=== PATIENT | male | born 1965 | race Caucasian/White ===

== ENCOUNTER 2021-09-08 12:19 | Emergency (ER) | payer BC ==
[~2021-09-08] VITALS: Ht 182.9 cm; Wt 115.2 kg
--- NOTE | 2021-09-08 12:23 | ED General ---
General Stated Complaint: CHEST PAIN History of Present Illness Date Seen by Provider: Sep 08, 2021 Time Seen by Provider: 12:22 Initial Comments 56-year-old male with PMH of HTN, is here with complaints of chest pain which began about 8:30 AM today morning. Pt had subjective fever, chills, and tiredness with myalgia yesterday, and stayed home from work. He did not have chest pain yesterday. Pt did the rapid COVID test at home which was negative. Pt went to urgent care today and was sent to ER from there for the chest pain. Patient states that the chest pain was a 9/10 when it was occurring. In the ER patient denies any chest pain. Denies shortness of breath, palpitations, abdominal pain, nausea and vomiting, diarrhea, dysuria, headache, syncope, blurry vision. Patient takes lisinopril for elevated blood pressure at home. No known sick contacts. Allergies and Home Medications Allergies Coded Allergies: No Known Drug Allergies (Unverified , 09/08/21) Patient Home Medication List Home Medication List Reviewed: Yes Review of Systems Review of Systems Constitutional: chills, fever EENTM: no symptoms reported Respiratory: no symptoms reported Cardiovascular: chest pain Gastrointestinal: no symptoms reported Genitourinary: no symptoms reported Musculoskeletal: no symptoms reported Skin: no symptoms reported Psychiatric/Neurological: No Symptoms Reported Hematologic/Lymphatic: No Symptoms Reported Immunological/Allergic: no symptoms reported Physical Exam Vital Signs Vital Signs - First Documented 09/08/21 12:23 Temp 37.0 Pulse 78 Resp 18 B/P (MAP) 145/80 (101) Pulse Ox 96 O2 Delivery Room Air Capillary Refill : Height, Weight, BMI Height: '" Weight: lbs. oz. kg; BMI Method: General Appearance: No Apparent Distress, Anxious HEENT: PERRL/EOMI Neck: Full Range of Motion Respiratory: Chest Non Tender, Lungs Clear, Normal Breath Sounds, No Accessory Muscle Use, No Respiratory Distress Cardiovascular: Regular Rate, Rhythm, No Edema, No JVD, No Murmur, Normal Peripheral Pulses, Other (point tenderness present over the 3rd costochondral junction) Gastrointestinal: Normal Bowel Sounds, Non Tender, Soft Back: Normal Inspection Neurologic/Psychiatric: Alert, Oriented x3, No Motor/Sensory Deficits Progress/Results/Core Measures Suspected Sepsis SIRS Temperature: Pulse: Respiratory Rate: Laboratory Tests 09/08/21 12:25: White Blood Count 7.7 Blood Pressure / Mean: Laboratory Tests 09/08/21 12:25: Creatinine 1.23, Platelet Count 236, Total Bilirubin 0.4 Results/Orders Lab Results Laboratory Tests Test 09/08/21 12:25 09/08/21 12:45 09/08/21 12:57 09/08/21 13:58 Range/Units White Blood Count 7.7 4.3-11.0 10^3/uL Red Blood Count 5.27 4.30-5.52 10^6/uL Hemoglobin 16.1 13.3-17.7 g/dL Hematocrit 46 40-54 % Mean Corpuscular Volume 88 80-99 fL Mean Corpuscular Hemoglobin 31 25-34 pg Mean Corpuscular Hemoglobin Concent 35 32-36 g/dL Red Cell Distribution Width 13.1 10.0-14.5 % Platelet Count 236 130-400 10^3/uL Mean Platelet Volume 9.3 9.0-12.2 fL Immature Granulocyte % (Auto) 0 % Neutrophils (%) (Auto) 69 42-75 % Lymphocytes (%) (Auto) 21 12-44 % Monocytes (%) (Auto) 9 0-12 % Eosinophils (%) (Auto) 1 0-10 % Basophils (%) (Auto) 1 0-10 % Neutrophils # (Auto) 5.3 1.8-7.8 10^3/uL Lymphocytes # (Auto) 1.6 1.0-4.0 10^3/uL Monocytes # (Auto) 0.7 0.0-1.0 10^3/uL Eosinophils # (Auto) 0.1 0.0-0.3 10^3/uL Basophils # (Auto) 0.1 0.0-0.1 10^3/uL Immature Granulocyte # (Auto) 0.0 0.0-0.1 10^3/uL D-Dimer 0.24 0.00-0.49 UG/ML Sodium Level 138 135-145 MMOL/L Potassium Level 3.7 3.6-5.0 MMOL/L Chloride Level 98 98-107 MMOL/L Carbon Dioxide Level 27 21-32 MMOL/L Anion Gap 13 5-14 MMOL/L Blood Urea Nitrogen 21 H 7-18 MG/DL Creatinine 1.23 0.60-1.30 MG/DL Estimat Glomerular Filtration Rate 70 BUN/Creatinine Ratio 17 Glucose Level 98 70-105 MG/DL Calcium Level 8.9 8.5-10.1 MG/DL Corrected Calcium 8.5-10.1 MG/DL Magnesium Level 1.9 1.6-2.4 MG/DL Total Bilirubin 0.4 0.1-1.0 MG/DL Aspartate Amino Transf (AST/SGOT) 27 5-34 U/L Alanine Aminotransferase (ALT/SGPT) 32 0-55 U/L Alkaline Phosphatase 75 40-136 U/L Troponin I < 0.30 < 0.30 <0.30 NG/ML Pro-B-Type Natriuretic Peptide 56.9 <125.0 PG/ML Total Protein 7.6 6.4-8.2 GM/DL Albumin 4.6 H 3.2-4.5 GM/DL Influenza Type A (RT-PCR) Not Detected Not Detecte Influenza Type B (RT-PCR) Not Detected Not Detecte SARS-CoV-2 RNA (RT-PCR) Detected H Not Detecte Urine Color YELLOW Urine Clarity SL CLOUDY Urine pH 6.5 5-9 Urine Specific [place] 1.015 L 1.016-1.022 Urine Protein NEGATIVE NEGATIVE Urine Glucose (UA) NEGATIVE NEGATIVE Urine Ketones NEGATIVE NEGATIVE Urine Nitrite NEGATIVE NEGATIVE Urine Bilirubin NEGATIVE NEGATIVE Urine Urobilinogen 0.2 < = 1.0 MG/DL Urine Leukocyte Esterase 1+ H NEGATIVE Urine RBC (Auto) TRACE-I H NEGATIVE Urine RBC 2-5 H /HPF Urine WBC 10-25 H /HPF Urine Squamous Epithelial Cells NONE /HPF Urine Crystals NONE /LPF Urine Bacteria NEGATIVE /HPF Urine Casts NONE /LPF Urine Mucus NEGATIVE /LPF Urine Culture Indicated YES Urine Opiates Screen NEGATIVE NEGATIVE Urine Oxycodone Screen NEGATIVE NEGATIVE Urine Methadone Screen NEGATIVE NEGATIVE Urine Propoxyphene Screen NEGATIVE NEGATIVE Urine Barbiturates Screen NEGATIVE NEGATIVE Ur Tricyclic Antidepressants Screen NEGATIVE NEGATIVE Urine Phencyclidine Screen NEGATIVE NEGATIVE Urine Amphetamines Screen NEGATIVE NEGATIVE Urine Methamphetamines Screen NEGATIVE NEGATIVE Urine Benzodiazepines Screen POSITIVE H NEGATIVE Urine Cocaine Screen NEGATIVE NEGATIVE Urine Cannabinoids Screen POSITIVE H NEGATIVE My Orders Orders - GERMAIN PIERRE MD Cbc With Automated Diff (09/08/21 12:35) Magnesium (09/08/21 12:35) Chest 1 View Ap/Pa Only (09/08/21 12:35) Ekg Tracing (09/08/21 12:35) Comprehensive Metabolic Panel (09/08/21 12:35) Monitor-Rhythm Ecg Trace Only (09/08/21 12:35) Aspirin Chewable Tablet (Baby Aspirin Ch (09/08/21 12:45) Ed Iv/Invasive Line Start (09/08/21 12:35) Fibrin Degradation Products (09/08/21 12:35) Troponin I Fs (09/08/21 12:35) Probnp Fs (09/08/21 12:35) Famotidine Injection (Pepcid Injection) (09/08/21 12:36) Covid 19 Inhouse Test (09/08/21 12:37) Influenza A And B By Pcr (09/08/21 12:37) Drug Screen Stat (Urine) (09/08/21 12:48) Ua Culture If Indicated (09/08/21 12:48) Urine Culture (09/08/21 12:57) Troponin I Fs (09/08/21 13:51) Ekg Tracing (09/08/21 13:52) Medications Given in ED Current Medications Medications Dose Ordered Sig/Westley Route Start Time Stop Time Status Last Admin Dose Admin Aspirin 324 mg ONCE ONCE PO 09/08/21 12:45 09/08/21 12:46 DC 09/08/21 12:43 324 MG Vital Signs/I&O 09/08/21 12:23 Temp 37.0 Pulse 78 Resp 18 B/P (MAP) 145/80 (101) Pulse Ox 96 O2 Delivery Room Air Capillary Refill : Progress Note : Progress Note 1. CHEST PAIN: ACS RULE OUT:ACUTE COSTOCHONDRITIS - CXR: no acute findings - EKG/ Troponin x2: non-ischemic - BNP normal - D-dimer normal - CBC/ CMP: unremarkable - UDS: positive for benzos and marijuana - ASA 324mg STAT - Pepcid 20mg iv STAT - no chest pain in ER - Ibuprofen for pain -The patient was seen in the ED, and treated appropriately to presentation at a specific point in time. Patient is informed that there is a possibility that disease and illness can evolve and change in acuity rapidly or slowly after patient is discharged from the ER. Precautionary advice given to the patient for immediate return to ER if symptoms worsen or do not resolve, and to seek emergency care sooner rather than later. Pt also advised on the importance of PCP follow up and compliance with management and follow up plan with PCP and/or specialist, as this is part of the management plan. Pt verbally expressed understanding. 2. COVID POSITIVE: - COVID positive - Quarantine measures advised/ Vitamin C and Zinc - Follow up with PCP 3. UTI: - UA positive for LE, WBC, RBC - Keflex bid for 5 days - Adequate hydration advised ECG Initial ECG Impression Date: Sep 08, 2021 Initial ECG Impression Time: 12:27 Initial ECG Rhythm: Normal Sinus Initial ECG Intervals: Normal Initial ECG Impression: Normal Diagnostic Imaging Diagonstic Imaging: Xray Plain Films/CT/US/NM/MRI: chest Comments [facility], [place] NAME: RAYMOND THOMPSON [facility] REC#: [id number] PT STATUS: REG ER : [id number] PHYSICIAN: GERMAIN PIERRE MD ADMIT DATE: 09/08/21/ER FS Signed Date of Exam:09/08/21 CHEST 1 VIEW AP/PA ONLY INDICATION: Chest pain. TIME OF EXAM: 12:39 p.m. COMPARISON: No prior studies are available for comparison. FINDINGS: The heart size is normal. The pulmonary vascularity is unremarkable. The lungs are clear. No infiltrate, effusion or pneumothorax is detected. IMPRESSION: No acute cardiopulmonary process is detected. Dictated by: Dictated on workstation # [id number] Dict: 09/08/21 1243 Trans: 09/08/21 1434 [id number] [id number] Interpreted by: MEERA STARK MD Electronically signed by: MEERA STARK MD 09/08/21 1434 Departure Impression Primary Impression: Lab test positive for detection of COVID-19 virus Additional Impressions: Ruled out for myocardial infarction Acute costochondritis Disposition: 01 HOME, SELF-CARE Condition: Improved Departure-Patient Inst. Patient Instructions: Chest Pain That Is Not Caused by the Heart (DC), COVID-19 (DC), Costochondritis Add. Discharge Instructions: - Quarantine measures advised/ Vitamin C and Zinc - Follow up with PCP - Keflex bid for 5 days for UTI - Adequate hydration advised - Return to ER if chest pain recurs Scripts Cephalexin (Cephalexin) 500 Mg Tablet 500 MG PO BID for 5 Days, #10 TAB Prov: GERMAIN PIERRE MD 09/08/21 Work/School Note: Work Release Form Date Seen in the Emergency Department: Sep 08, 2021 Return to Work: Sep 15, 2021 Restrictions: Need Release from Doctor GERMAIN PIERRE MD Sep 08, 2021 12:23
[2021-09-08] MEDS ORDERED: FAMOTIDINE 20MG/2ML IV (PEPCID) IV STA (12:36)
[2021-09-08] MEDS ORDERED: ASPIRIN 81 MG CHEW (CHILDREN'S ASA) PO ONE (12:45)
[2021-09-08 12:47] LABS: BASOPHILS # (AUTO) 0.1 10^3/uL (0.0-0.1); BASOPHILS % (AUTO) 1 % (0-10); EOSINOPHILS # (AUTO) 0.1 10^3/uL (0.0-0.3); EOSINOPHILS % (AUTO) 1 % (0-10); HEMATOCRIT 46 % (40-54); HEMOGLOBIN 16.1 g/dL (13.3-17.7); LYMPHOCYTES # (AUTO) 1.6 10^3/uL (1.0-4.0); LYMPHOCYTES % (AUTO) 21 % (12-44); MEAN CORPUSCULAR HEMOGLOBIN 31 pg (25-34); MEAN CORPUSCULAR HGB CONC 35 g/dL (32-36); MEAN CORPUSCULAR VOLUME 88 fL (80-99); MEAN PLATELET VOLUME 9.3 fL (9.0-12.2); MONOCYTES # (AUTO) 0.7 10^3/uL (0.0-1.0); MONOCYTES % (AUTO) 9 % (0-12); NEUTROPHILS # (AUTO) 5.3 10^3/uL (1.8-7.8); NEUTROPHILS % (AUTO) 69 % (42-75); PLATELET COUNT 236 10^3/uL (130-400); WHITE BLOOD COUNT 7.7 10^3/uL (4.3-11.0)
--- NOTE | 2021-09-08 12:49 | Diagnostic Imaging Report ---
INDICATION: Chest pain. TIME OF EXAM: 12:39 p.m. COMPARISON: No prior studies are available for comparison. FINDINGS: The heart size is normal. The pulmonary vascularity is unremarkable. The lungs are clear. No infiltrate, effusion or pneumothorax is detected. IMPRESSION: No acute cardiopulmonary process is detected. Dictated by: Dictated on workstation # [id number]
[2021-09-08 13:02] LABS: BILIRUBIN,URINE NEGATIVE (NEGATIVE); CLARITY,URINE SL CLOUDY; COLOR,URINE YELLOW; GLUCOSE, URINE (UA) NEGATIVE (NEGATIVE); KETONES,URINE NEGATIVE (NEGATIVE); LEUKOCYTE ESTERASE ,URINE 1+ (NEGATIVE); NITRITE,URINE NEGATIVE (NEGATIVE); PH,URINE 6.5 (5-9); PROTEIN,URINE NEGATIVE (NEGATIVE)
[2021-09-08 13:13] LABS: CARBON DIOXIDE 27 MMOL/L (21-32); CHLORIDE 98 MMOL/L (98-107); POTASSIUM 3.7 MMOL/L (3.6-5.0); SODIUM 138 MMOL/L (135-145)
[2021-09-08 13:14] LABS: ALANINE AMINOTRANSFERASE 32 U/L (0-55); ALBUMIN 4.6 GM/DL (3.2-4.5); ALKALINE PHOSPHATASE 75 U/L (40-136); BILIRUBIN,TOTAL 0.4 MG/DL (0.1-1.0); BUN/CREATININE RATIO 17; CALCIUM 8.9 MG/DL (8.5-10.1); CREATININE SERUM 1.23 MG/DL (0.60-1.30); GFR ESTIMATED 70; GLUCOSE 98 MG/DL (70-105); MAGNESIUM 1.9 MG/DL (1.6-2.4); TOTAL PROTEIN 7.6 GM/DL (6.4-8.2)
[2021-09-08 13:20] LABS: BACTERIA,URINE NEGATIVE /HPF
[2021-09-08 13:22] LABS: AMPHETAMINE SCREEN, URINE NEGATIVE (NEGATIVE); BARBITURATE SCREEN URINE NEGATIVE (NEGATIVE); BENZODIAZEPINES SCREEN URINE POSITIVE (NEGATIVE); CANNABINOID SCREEN, URINE POSITIVE (NEGATIVE); COCAINE SCREEN URINE NEGATIVE (NEGATIVE); METHADONE STAT NEGATIVE (NEGATIVE); OPIATE SCREEN URINE NEGATIVE (NEGATIVE); OXYCODONE STAT NEGATIVE (NEGATIVE); PROPOXYPHENE STAT NEGATIVE (NEGATIVE); TRICYCLIC ANTIDEPRESSANTS SCRE NEGATIVE (NEGATIVE)
[2021-09-08] MEDS ORDERED: CEPH500T PO (15:15)
[2021-09-08 15:20] VITALS: BP 140/88
== END 2021-09-08 15:21 | disposition home or self-care (01) ==
LOC: EDUNIT# 12:19 → ER FS 12:21
DX: U07.1 COVID-19 (principal); M94.0 Chondrocostal junction syndrome [Tietze]; I10 Essential (primary) hypertension; Z28.310 Unvaccinated for COVID-19; Z79.899 Other long term (current) drug therapy
CPT/HCPCS: 36415; 71045; 80053; 80306; 81000; 83735; 83880; 84484; 85025; 85379; 87077; 87088; 87636; 93041

== ENCOUNTER 2022-06-25 04:45 | Emergency (ER) | payer BC ==
[~2022-06-25] VITALS: Ht 183 cm; Wt 109.0 kg
[~2022-06-25 04:45] MED LIST: CEPH500T PO
--- NOTE | 2022-06-25 05:27 | ED General ---
General Chief Complaint: Post OP Complications/Pain Stated Complaint: POST OP BLEEDING Nursing Triage Note: PT AMB TO FS 05 W C/O POST OP BLEEDING. PT REPORTS HE HAD CIRCUMCISION YESTERDAY BY DR. REYES AT THE [facility] AND BLEEDING HAS NOT STOPPED. PT A&OX4, DENIES PAIN. Source of Information: Patient Exam Limitations: No Limitations History of Present Illness Date Seen by Provider: Jun 25, 2022 Time Seen by Provider: 04:53 Initial Comments 57-year-old male with past medical history of phimosis that had a circumcision by Dr. Reyes yesterday at 8 AM coming in because it has not stopped bleeding. He does not take any blood thinners or any aspirin. He was wearing an adult diaper throughout the night and woke up with it filled with blood and came here. He has never had any bleeding issues in the past. Denies any blood clots as well. Otherwise denying any other acute complaints including chest pain, shortness of breath, lightheadedness, weakness, or any other concerns Allergies and Home Medications Allergies Coded Allergies: No Known Drug Allergies (Unverified , 09/08/21) Patient Home Medication List Home Medication List Reviewed: Yes Cephalexin (Cephalexin) 500 Mg Tablet, 500 MG PO BID Prescribed by: GERMAIN PIERRE MD on 09/08/21 8685 Review of Systems Review of Systems Constitutional: No fever EENTM: no symptoms reported Respiratory: no symptoms reported Cardiovascular: no symptoms reported Gastrointestinal: no symptoms reported Genitourinary: see HPI Musculoskeletal: no symptoms reported Skin: no symptoms reported Psychiatric/Neurological: No Symptoms Reported Hematologic/Lymphatic: See HPI Past Hgkzrws-Mqvnyl-Hdjifx Hx Patient Social History Tobacco Use?: No Use of E-Cig and/or Vaping dev: No Substance use?: No Alcohol Use?: No Immunizations Up To Date Influenza Vaccine Up-to-Date: No; Not Current First/Initial COVID19 Vaccinat: NONE Second COVID19 Vaccination Mo: NONE Third COVID19 Vaccination Date: NONE COVID19 Vaccine Cvor Nurse: NONE Past Medical History Surgery/Hospitalization HX: HTN, Anxiety, Depression, GERD, CIRCUMCISION (06/24/22) Physical Exam Vital Signs Vital Signs - First Documented 06/25/22 04:51 Temp 36.0 Pulse 80 Resp 18 B/P (MAP) 167/100 (122) Pulse Ox 94 O2 Delivery Room Air Capillary Refill : Less Than 3 Seconds Height, Weight, BMI Height: '" Weight: lbs. oz. kg; 32.00 BMI Method: General Appearance: No Apparent Distress, WD/WN Eyes: Bilateral Eye Normal Inspection HEENT: PERRL/EOMI, Normal ENT Inspection Neck: Full Range of Motion, Normal Inspection Respiratory: Chest Non Tender, Lungs Clear Cardiovascular: Regular Rate, Rhythm, No Edema, Normal Peripheral Pulses Gastrointestinal: No Non Tender; Soft; No Guarding Genital/Rectal: Other (Postcircumcision on his penis with bleeding around the stitches, there is some bruising above his penis and along his scrotum) Back: Normal Inspection Extremity: Normal Inspection, Normal Range of Motion Neurologic/Psychiatric: Alert, No Motor/Sensory Deficits, Normal Mood/Affect Skin: Normal Color, Warm/Dry Progress/Results/Core Measures Suspected Sepsis SIRS Temperature: Pulse: 80 Respiratory Rate: 18 Laboratory Tests 06/25/22 05:30: White Blood Count 8.4 Blood Pressure 167 /100 Mean: 122 Laboratory Tests 06/25/22 05:30: Platelet Count 220 Results/Orders Lab Results Laboratory Tests Test 06/25/22 05:30 Range/Units White Blood Count 8.4 4.3-11.0 10^3/uL Red Blood Count 4.70 4.30-5.52 10^6/uL Hemoglobin 14.6 13.3-17.7 g/dL Hematocrit 42 40-54 % Mean Corpuscular Volume 88 80-99 fL Mean Corpuscular Hemoglobin 31 25-34 pg Mean Corpuscular Hemoglobin Concent 35 32-36 g/dL Red Cell Distribution Width 12.8 10.0-14.5 % Platelet Count 220 130-400 10^3/uL Mean Platelet Volume 8.9 L 9.0-12.2 fL Immature Granulocyte % (Auto) 0 % Neutrophils (%) (Auto) 61 42-75 % Lymphocytes (%) (Auto) 29 12-44 % Monocytes (%) (Auto) 6 0-12 % Eosinophils (%) (Auto) 3 0-10 % Basophils (%) (Auto) 1 0-10 % Neutrophils # (Auto) 5.1 1.8-7.8 10^3/uL Lymphocytes # (Auto) 2.4 1.0-4.0 10^3/uL Monocytes # (Auto) 0.5 0.0-1.0 10^3/uL Eosinophils # (Auto) 0.2 0.0-0.3 10^3/uL Basophils # (Auto) 0.1 0.0-0.1 10^3/uL Immature Granulocyte # (Auto) 0.0 0.0-0.1 10^3/uL My Orders Orders - JESSE WASHBURN MD Tranexamic Acid Injection (Cyklokapron I (06/25/22 05:30) Cbc With Automated Diff (06/25/22 05:27) Ondansetron Injection (Zofran Injectio (06/25/22 05:45) Medications Given in ED Current Medications Medications Dose Ordered Sig/Westley Route Start Time Stop Time Status Last Admin Dose Admin Ondansetron HCl 4 mg ONCE ONCE IVP 06/25/22 05:45 06/25/22 05:46 DC 06/25/22 05:46 4 MG Tranexamic Acid 1,000 mg ONCE ONCE IV 06/25/22 05:30 06/25/22 05:31 DC 06/25/22 05:37 1,000 MG Vital Signs/I&O 06/25/22 04:51 Temp 36.0 Pulse 80 Resp 18 B/P (MAP) 167/100 (122) Pulse Ox 94 O2 Delivery Room Air Capillary Refill : Less Than 3 Seconds Blood Pressure Mean: 122 Progress Note : Progress Note 57-year-old male presenting due to bleeding from the circumcision site. ABCs were intact and vitals were stable on presentation. Physical exam with active bleeding around the stitches mostly next to the frenulum abutting the glans. The patient's anatomy was challenging and I was unable to apply a pressure dressing of any kind. Because of this, I soaked in gauze and sterile saline and applied pressure manually. After 10 minutes, I allowed the patient to then apply manual pressure for another 10 minutes. At this point the bleeding look like it had slowed down almost completely. I discussed with the patient giving IV TXA which although not necessarily for this condition, would be appropriate given the amount of bleeding he is stating he had and because the area is difficult to compress. I discussed the risk potentially of blood clot which he is agreeable to. He has no prior history of DVT or PE and I think the benefits outweigh the risk in this situation. He is agreeable to this. CBC was drawn to assess his platelet count as well as to make sure he was not too anemic. His hemoglobin and platelet count were normal. Bleeding completely stopped and I personally continued to monitor him with frequent reassessments. I believe he is otherwise stable for discharge with outpatient follow-up with his urologist. He was sent home with strict return precautions Departure Impression Primary Impression: Circumcision complication Qualified Codes: T81.9XXA - Unspecified complication of procedure, initial encounter Disposition: HOME, SELF-CARE Condition: Improved Departure-Patient Inst. Decision time for Depature: 06:15 Referrals: YASMANI PERSON MD (PCP/Family) Primary Care Physician Patient Instructions: Circumcision, Adult Add. Discharge Instructions: Please call Dr. Reyes's office as soon as possible if continuing to have issues. If the bleeding starts up again and you are unable to stop it with the pressure like we showed you in the ER, then drive to an ER with a urologist present such as [facility] Wood, or a [facility]. I would let someone else drive you while you are holding pressure so that it is not bleeding during the trip. Obviously if the bleeding is not slowing down at all even with pressure, then call 911 or go to the nearest ER. Work/School Note: Work Release Form Date Seen in the Emergency Department: A pr 2022 Return to Work: Jun 26, 2022 Restrictions: No Restrictions JESSE WASHBURN MD Jun 25, 2022 05:27
[2022-06-25] MEDS ORDERED: TRANEXAMIC ACID 100 MG/ML 10 ML INJECTION IV ONE (05:30)
[2022-06-25 05:36] LABS: BASOPHILS # (AUTO) 0.1 10^3/uL (0.0-0.1); BASOPHILS % (AUTO) 1 % (0-10); EOSINOPHILS # (AUTO) 0.2 10^3/uL (0.0-0.3); EOSINOPHILS % (AUTO) 3 % (0-10); HEMATOCRIT 42 % (40-54); HEMOGLOBIN 14.6 g/dL (13.3-17.7); LYMPHOCYTES # (AUTO) 2.4 10^3/uL (1.0-4.0); LYMPHOCYTES % (AUTO) 29 % (12-44); MEAN CORPUSCULAR HEMOGLOBIN 31 pg (25-34); MEAN CORPUSCULAR HGB CONC 35 g/dL (32-36); MEAN CORPUSCULAR VOLUME 88 fL (80-99); MEAN PLATELET VOLUME 8.9 fL (9.0-12.2); MONOCYTES # (AUTO) 0.5 10^3/uL (0.0-1.0); MONOCYTES % (AUTO) 6 % (0-12); NEUTROPHILS # (AUTO) 5.1 10^3/uL (1.8-7.8); NEUTROPHILS % (AUTO) 61 % (42-75); PLATELET COUNT 220 10^3/uL (130-400); WHITE BLOOD COUNT 8.4 10^3/uL (4.3-11.0)
[2022-06-25] MEDS ORDERED: ONDANSETRON 4 MG/2 ML (SDV) Z0FRAN IVP ONE (05:45)
[2022-06-25 06:19] VITALS: BP 141/92
== END 2022-06-25 06:19 | disposition home or self-care (01) ==
LOC: EDUNIT# 04:45 → ER FS 04:47
DX: N99.820 Postprocedural hemorrhage of a genitourinary system organ or structure following a genitourinary system procedure (principal); Z28.310 Unvaccinated for COVID-19
CPT/HCPCS: 36415; 85025